=== PATIENT | female | born 1935 | race Caucasian/White ===

== ENCOUNTER 2020-06-21 16:08 | Emergency (ER) | payer MEDICARE, SELFPAY ==
--- NOTE | ~2020-06-21 | XR_ITS ---
XR foot RT min 3V 06/21/2020 17:24 INDICATION: Right foot pain PROCEDURE: 4 views right foot COMPARISON: 09/14/2016 FINDINGS: Fracture, dislocation or subluxation is not identified. Osteopenia. There is polyarticular osteoarthritis. Lisfranc joint intact. The soft tissues appear within normal limits. No foreign bodi es are identified. IMPRESSION: 1: NO ACUTE BONE OR JOINT ABNORMALITY IDENTIFIED. Reviewed, dictated and finalized at location A.
--- NOTE | 2020-06-21 16:22 | ED.GENADULT ---
HPI - General Adult General Chief complaint: Extremity Injury, Lower Stated complaint: rt foot sprain Time Seen by Provider: 06/21/20 16:23 Source: patient Mode of arrival: ambulatory Limitations: no limitations History of Present Illness HPI narrative: 84-year-old female patient presents to the [facility] with complaints of right foot pain. Patient states she fell on June 12 in her yard. Patient states she kind of twisted and fell onto the right side of her foot. Patient states she typically does have balance issues. Patient states she has been soaking her foot in Epson salt and taking Tylenol for the pain. Patient states the pain is mostly along the base of the toes and on the lateral side of the foot. Denies any numbness or tingling. Patient states she has been walking on it. Patient states that when she is not putting any pressure on it her pain is 0 out of 10 however when she goes to walk stand up and put weight on the foot it is about a 5 out of 10. Related Data Home Medications Medication Instructions Recorded Confirmed omeprazole 40 mg capsule,delayed 40 mg PO DAILY 04/17/19 12/02/19 release cholecalciferol (vitamin D3) 50 2,000 unit PO DAILY 05/29/19 12/02/19 mcg (2,000 unit) tablet dorzolamide-timolol (PF) 2 %-0.5 % 1 drop EACH EYE BID 05/29/19 12/02/19 eye drops in a dropperette Allergies Allergy/AdvReac Type Severity Reaction Status Date / Time ascorbic acid Allergy Unknown Unknown Verified 06/21/20 16:48 lutein Allergy Unknown Nausea Verified 06/21/20 16:48 shellfish derived Allergy Unknown Vomiting Verified 06/21/20 16:48 zinc Allergy Unknown Unknown Verified 06/21/20 16:48 erythromycin base AdvReac Unknown NAUSEA Verified 06/21/20 16:48 SHELLFISH Allergy Unknown Vomiting Uncoded 12/02/19 13:27 Review of Systems Review of Systems: Narrative: CONSTITUTIONAL: Denies fever, chills, or sweats. EYES: Denies visual changes, redness, or discharge. ENT: Denies rhinorrhea, congestion, sore throat, or otalgia. CARDIOVASCULAR: Denies chest pain, palpitations, or edema. RESPIRATORY: Denies cough or dyspnea. GASTROINTESTINAL: Denies abdominal pain, nausea, vomiting, or diarrhea. GENITOURINARY: Denies dysuria or hematuria. SKIN: Denies rash or itching. MUSCULOSKELETAL: Denies back pain, joint pain, or myalgia. Positive right foot pain NEUROLOGIC: Denies headache, numbness, or weakness. PSYCHIATRIC: Denies anxiety or depression. [facility] Past Medical History Medical History Bigeminy Bigeminy Cataract Cataract Chicken pox Chicken pox Diabetes Fractures H/O fracture History of measles, mumps, or rubella History of measles, mumps, or rubella Hyperglycemia Hyperglycemia Hyperlipidemia Hyperlipidemia Hypertension Hypertension Ischemic colitis Ischemic colitis Leukocytosis Leukocytosis Surgical History Surgical History Cataract extraction status (~2007) Family History Family History Father Carcinoma of colon Mother Breast cancer Father Carcinoma of colon Mother Breast cancer Social History Social History Smoking packs per day: 1 Smoking cigarettes per day: 20.0 Smoking status: Never smoker Tobacco type: cigarettes Smoking end date: 04/10/98 Alcohol intake: never Comments At the time of my signature I agree with nursing past medical history, surgical, social, and family history. There is no relevant family history pertinent to the presenting complaint. Exam Narrative: Exam Narrative: GENERAL: Well-appearing, well-nourished, and in no acute distress. HEAD: Normocephalic, atraumatic. EYES: PERRLA and EOMI. ENT: Nares clear, no rhinorrhea or epistaxis. Mucous membranes moist. NECK: Supple. No lymphadenopathy CHEST: Clear to auscultation. No respiratory dist
[2020-06-21 16:28] VITALS: BP 182/80; PULSE 65; RESP 16; TEMP 36.1; O2SAT 97
[2020-06-21 17:26] VITALS: BP 168/84
== END 2020-06-21 17:41 | disposition home or self-care (01) ==
PROVIDERS: Emergency Provider Nurse Practitioner Family; PCP Internal Medicine
DX: S93.601A Unspecified sprain of right foot, initial encounter (principal); W19.XXXA Unspecified fall, initial encounter; E11.9 Type 2 diabetes mellitus without complications; I10 Essential (primary) hypertension; Z98.49 Cataract extraction status, unspecified eye
CPT/HCPCS: 73630; 99213; G0463